=== PATIENT | male | born 1955 | race Caucasian/White ===

== ENCOUNTER 2017-11-17 12:19 | Inpatient (IN) | payer MEDICARE, OTHER ==
[~2017-11-17] VITALS: Ht 177.8 cm; Wt 77.8 kg
[2017-11-17] MEDS ORDERED: DILTIAZEM 5 MG/ML, 5ML IVPush STA (12:30)
[2017-11-17] MEDS ORDERED: SODIUM CHLORIDE FLUSH 10ML SYR IVF ONE (12:30)
[2017-11-17] MEDS ORDERED: DILTIAZEM 5 MG/ML, 5ML ONE (12:38)
[2017-11-17 12:46] LABS: BASOPHILS # (AUTO) 0.03 x10^3/uL (0-0.1); BASOPHILS % (AUTO) 0 % (0-1); EOSINOPHILS # (AUTO) 0.04 x10^3/uL (0-0.4); EOSINOPHILS % (AUTO) 0 % (1-7); LYMPHOCYTES # (AUTO) 1.91 x10^3/uL (1-3.4); LYMPHOCYTES % (AUTO) 13 % (22-44); MD NO; MEAN CORPUSCULAR HEMOGLOBIN 32.8 pg (27.5-34.5); MEAN CORPUSCULAR HGB CONC 34.2 g/dL (33.2-36.2); MEAN PLATELET VOLUME 6.6 fL (7.4-10.4); MONOCYTES # (AUTO) 0.71 x10^3/uL (0.2-0.8); MONOCYTES % (AUTO) 5 % (2-9); NEUTROPHILS # (AUTO) 11.85 x10^3/uL (1.8-6.8); NEUTROPHILS % (AUTO) 82 % (42-75); PLATELET COUNT 455 x10^3/uL (130-400); RED BLOOD COUNT 4.87 x10^6/uL (4.38-5.82); RED CELL DISTRIBUTION WIDTH 15.1 % (9.4-14.8)
[2017-11-17 12:54] LABS: INTERNATIONAL NORMALIZED RATIO 0.98 (0.93-1.1); PROTHROMBIN TIME 10.2 Seconds (9.6-11.5)
[2017-11-17 12:59] LABS: ALANINE AMINOTRANSFERASE 23 U/L (12-78); ALBUMIN 3.8 g/dL (3.4-5.0); ANION GAP 15 mmol/L (5-15); CALCIUM 8.4 mg/dL (8.5-10.1); CHLORIDE 99 mmol/L (98-107); CREATININE 1.06 mg/dL (0.7-1.3)
[2017-11-17] MEDS ORDERED: ETOMIDATE 20 MG/10 ML ONE (12:59)
[2017-11-17 13:03] LABS: ALKALINE PHOSPHATASE 128 U/L (45-117); BILIRUBIN,TOTAL 0.4 mg/dL (0.2-1.0); TOTAL PROTEIN 8.1 g/dL (6.4-8.2); TROPONIN I < 0.015 ng/mL (0.000-0.045)
[2017-11-17] MEDS ORDERED: FENTANYL PF 100 MCG/2ML ONE (13:10)
[2017-11-17] MEDS ORDERED: PROPOFOL 10 MG/ML, 20ML ONE ×2 (13:11→16:14)
[2017-11-17] MEDS ORDERED: FENTANYL PF 100 MCG/2ML IV ONE (13:30)
[2017-11-17] MEDS ORDERED: METOPROLOL TARTRATE 25 MG TABLET PO ONE (13:30)
[2017-11-17] MEDS ORDERED: PROPOFOL 10 MG/ML, 20ML IVPush ONE ×2 (13:30→16:30)
[2017-11-17] MEDS ORDERED: ETOMIDATE 20 MG/10 ML IVPush ONE ×2 (13:30)
[2017-11-17] MEDS ORDERED: ENOXAPARIN 80 MG/0.8 ML SQ ONE (14:30)
[2017-11-17] MEDS ORDERED: AMIODARONE 900 MG in DEXTROSE 5% 482 ML IV ONE (14:30)
[2017-11-17] MEDS ORDERED: FILTER 0.22 MICRON IV ONE (14:30)
[2017-11-17] MEDS ORDERED: AMIODARONE 150 MG in DEXTROSE 5% 100 ML IV ONE (14:30)
[2017-11-17] MEDS ORDERED: ONDANSETRON 2MG/ML, 2ML ONE (14:50)
[2017-11-17] MEDS ORDERED: ONDANSETRON 2MG/ML, 2ML IVPush PRN ×2 (15:00→15:30)
[2017-11-17] MEDS ORDERED: LORazepam 2 MG/ML, 1ML ONE (15:06)
[2017-11-17] MEDS ORDERED: DOCUSATE 100 MG CAPSULE PO PRN (15:30)
[2017-11-17] MEDS ORDERED: BISACODYL 10 MG SUPP PR PRN (15:30)
[2017-11-17] MEDS ORDERED: Enoxaparin 1 mg/kg protocol SQ SCH (15:30)
[2017-11-17] MEDS ORDERED: ENALAPRILAT 1.25 MG/ML, 2ML IVPush PRN (15:30)
[2017-11-17] MEDS ORDERED: ACETAMINOPHEN 325 MG TABLET PO PRN (15:30)
[2017-11-17] MEDS ORDERED: LORazepam 2 MG/ML, 1ML IVPush ONE (15:30)
[2017-11-17] MEDS ORDERED: POLYETHYLENE GLYCOL 17 GM PACKET PO PRN (15:30)
[2017-11-17] MEDS ORDERED: LORazepam 2 MG/ML, 1ML IVPush PRN (15:30)
[2017-11-17] MEDS ORDERED: MAGNESIUM SULFATE PMX 2GM/50ML 50 ML IV ONE (16:00)
[2017-11-17] MEDS ORDERED: AMIODARONE 900 MG in DEXTROSE 5% 482 ML IV PRN (16:00)
[2017-11-17] MEDS ORDERED: NS + 20MEQ KCL 1,000 ML IV SCH (16:00)
[2017-11-17] MEDS: BACLOFEN 10 MG TABLET PO SCH ×2 (16:00→20:42)
[2017-11-17 16:23] LABS: THYROID STIMULATING HORMONE 2.18 mIU/L (0.358-3.740)
[2017-11-17 17:00] LABS: AMPHETAMINE SCREEN, URINE Negative (Negative); BARBITURATE SCREEN, URINE Negative (Negative); BENZODIAZEPINE SCREEN, URINE Negative (Negative); CANNABINOID SCREEN, URINE Negative (Negative); COCAINE SCREEN, URINE Negative (Negative); METHADONE SCREEN, URINE Negative (Negative); OPIATE SCREEN, URINE Negative (Negative)
[2017-11-17] MEDS: ENOXAPARIN 80 MG/0.8 ML SQ SCH (18:00)
[2017-11-17 18:05] VITALS: BP 151/96
[2017-11-17] MEDS: CEFTRIAXONE PMX 1GM/50ML 50 ML IV SCH (20:37)
[2017-11-17] MEDS: SODIUM CHLORIDE FLUSH 10ML SYR IVF SCH (20:42)
[2017-11-17] MEDS: GUAIFENESIN ER 600 MG TABLET PO SCH (20:42)
[2017-11-17] MEDS: DOXYCYCLINE 50 MG/5 ML ORAL SUSP PO SCH (20:43)
[2017-11-17] MEDS: methylPREDNISolone SOD SUCC 125 MG/2 ML IVPush SCH (21:09)
[2017-11-17 23:24] VITALS: BP 166/100
[2017-11-17] MEDS: LORazepam 2 MG/ML, 1ML IVPush PRN (23:53)
[2017-11-18] MEDS ORDERED: IBUPROFEN 200 MG TABLET PO ONE
[2017-11-18 03:04] VITALS: BP 150/92
[2017-11-18] MEDS: methylPREDNISolone SOD SUCC 125 MG/2 ML IVPush SCH ×2 (03:08→10:18)
[2017-11-18] MEDS: ENOXAPARIN 80 MG/0.8 ML SQ SCH ×2 (05:17→18:19)
[2017-11-18 06:48] LABS: BASOPHILS # (AUTO) 0.03 x10^3/uL (0-0.1); BASOPHILS % (AUTO) 0 % (0-1); EOSINOPHILS % (AUTO) 0 % (1-7); LYMPHOCYTES # (AUTO) 0.33 x10^3/uL (1-3.4); LYMPHOCYTES % (AUTO) 5 % (22-44); MD NO; MEAN CORPUSCULAR HGB CONC 34.3 g/dL (33.2-36.2); MEAN PLATELET VOLUME 6.9 fL (7.4-10.4); MONOCYTES # (AUTO) 0.03 x10^3/uL (0.2-0.8); MONOCYTES % (AUTO) 0 % (2-9); NEUTROPHILS # (AUTO) 6.09 x10^3/uL (1.8-6.8); NEUTROPHILS % (AUTO) 94 % (42-75); PLATELET COUNT 320 x10^3/uL (130-400); RED BLOOD COUNT 4.31 x10^6/uL (4.38-5.82); RED CELL DISTRIBUTION WIDTH 14.9 % (9.4-14.8)
[2017-11-18 06:57] LABS: ALANINE AMINOTRANSFERASE 20 U/L (12-78); ALBUMIN 3.4 g/dL (3.4-5.0); ANION GAP 9 mmol/L (5-15); CALCIUM 8.2 mg/dL (8.5-10.1); CHLORIDE 100 mmol/L (98-107); CHOLESTEROL, TOTAL 224 mg/dL (140-239)
[2017-11-18 06:59] LABS: ALKALINE PHOSPHATASE 112 U/L (45-117); BILIRUBIN,TOTAL 0.9 mg/dL (0.2-1.0); CHOL/HDL RATIO 2.7; HDL CHOL % 37 % (26-37); HDL CHOLESTEROL (DIRECT) 83 mg/dL (40-60); LDL CHOLESTEROL,CALCULATED 125 mg/dL (54-169); LDL/HDL RATIO 1.5 (0.5-3.0); TOTAL PROTEIN 7.3 g/dL (6.4-8.2); TRIGLYCERIDES 80 mg/dL (50-200); VLDL CHOLESTEROL 16 mg/dL (0-25)
[2017-11-18] MEDS: LORazepam 2 MG/ML, 1ML IVPush PRN ×6 (08:03→23:40)
[2017-11-18 08:25] VITALS: BP 164/96
[2017-11-18] MEDS ORDERED: LORazepam 2 MG/ML, 1ML ONE (10:10)
[2017-11-18] MEDS: BACLOFEN 10 MG TABLET PO SCH ×3 (10:17→21:07)
[2017-11-18] MEDS: GUAIFENESIN ER 600 MG TABLET PO SCH ×2 (10:17→21:07)
[2017-11-18] MEDS: METOPROLOL TARTRATE 25 MG TABLET PO SCH ×2 (10:17→18:19)
[2017-11-18] MEDS: DOXYCYCLINE 50 MG/5 ML ORAL SUSP PO SCH ×2 (10:18→21:07)
[2017-11-18] MEDS: SODIUM CHLORIDE FLUSH 10ML SYR IVF SCH ×2 (10:18→21:07)
[2017-11-18 11:55] VITALS: BP 164/91
[2017-11-18] MEDS ORDERED: FILTER 0.22 MICRON IV PRN (13:30)
[2017-11-18 14:50] VITALS: BP 146/85
[2017-11-18] MEDS: CEFTRIAXONE PMX 1GM/50ML 50 ML IV SCH (15:50)
[2017-11-18 19:01] VITALS: BP 147/89
[2017-11-19 00:05] VITALS: BP 161/94
[2017-11-19] MEDS: METOPROLOL TARTRATE 25 MG TABLET PO SCH ×2 (02:32→09:00)
[2017-11-19] MEDS: LORazepam 2 MG/ML, 1ML IVPush PRN ×4 (02:32→13:22)
[2017-11-19] MEDS: ENOXAPARIN 80 MG/0.8 ML SQ SCH (05:34)
[2017-11-19 06:14] VITALS: BP 159/95
[2017-11-19 08:05] VITALS: BP 156/96
[2017-11-19] MEDS ORDERED: ASPIRIN 325 MG TABLET PO SCH (08:30)
[2017-11-19] MEDS ORDERED: NICOTINE 14MG/24 HR PATCH.TD24 TD ONE (08:30)
[2017-11-19] MEDS: DOXYCYCLINE 50 MG/5 ML ORAL SUSP PO SCH (08:58)
[2017-11-19] MEDS: BACLOFEN 10 MG TABLET PO SCH (08:59)
[2017-11-19] MEDS: GUAIFENESIN ER 600 MG TABLET PO SCH (08:59)
[2017-11-19] MEDS ORDERED: AMIODARONE 200 MG TABLET PO SCH (09:00)
[2017-11-19] MEDS: SODIUM CHLORIDE FLUSH 10ML SYR IVF SCH (09:01)
[2017-11-19] MEDS ORDERED: AMIODARONE 150 MG in DEXTROSE 5% 100 ML IV ONE (10:30)
[2017-11-19] MEDS ORDERED: AMIODARONE 900 MG in DEXTROSE 5% 482 ML IV PRN (10:30)
[2017-11-19 14:09] VITALS: BP 147/98
== END 2017-11-19 15:40 | disposition left against medical advice (07) | DRG 309 ==
LOC: ED 14:21 → EDIP 14:41 → 5SO 17:27
PROVIDERS: ADMIT Internal Medicine; ATTEND Internal Medicine
PROC: 5A2204Z Restoration of Cardiac Rhythm, Single (ICD-10-PCS; principal; 2017-11-17)
DX: I48.91 Unspecified atrial fibrillation (principal); E87.1 Hypo-osmolality and hyponatremia; F10.239 Alcohol dependence with withdrawal, unspecified; F17.210 Nicotine dependence, cigarettes, uncomplicated; J20.9 Acute bronchitis, unspecified; F41.9 Anxiety disorder, unspecified; I10 Essential (primary) hypertension; J45.909 Unspecified asthma, uncomplicated; Z79.01 Long term (current) use of anticoagulants; Z79.82 Long term (current) use of aspirin
CPT/HCPCS: 36415; 70450; 71045; 71275; 80053; 80061; 80307; 83735; 83880; 84443; 84484; 85025; 85379; 85610; 93005; 93306; 96365; 96366; 96372; 96375; 99152; 99153; J0696; J1650; J2405; J2704; J3010; J3480; J0282; J2060; J2930; J7060; J7512

== ENCOUNTER 2017-11-21 20:07 | Emergency (ER) | payer MEDICARE ==
[~2017-11-21] VITALS: Ht 180.3 cm; Wt 78.7 kg
[2017-11-21 20:11] VITALS: BP 168/100
[2017-11-21] MEDS ORDERED: THIAMINE 100MG TABLET PO ONE (20:30)
[2017-11-21] MEDS ORDERED: THIAMINE 100MG TABLET ONE (20:43)
[2017-11-21 20:44] LABS: BASOPHILS # (AUTO) 0.01 x10^3/uL (0-0.1); BASOPHILS % (AUTO) 0 % (0-1); EOSINOPHILS # (AUTO) 0.14 x10^3/uL (0-0.4); EOSINOPHILS % (AUTO) 1 % (1-7); LYMPHOCYTES # (AUTO) 1.37 x10^3/uL (1-3.4); LYMPHOCYTES % (AUTO) 12 % (22-44); MD NO; MEAN CORPUSCULAR HEMOGLOBIN 32.6 pg (27.5-34.5); MEAN CORPUSCULAR HGB CONC 33.3 g/dL (33.2-36.2); MEAN PLATELET VOLUME 7.5 fL (7.4-10.4); MONOCYTES # (AUTO) 0.63 x10^3/uL (0.2-0.8); MONOCYTES % (AUTO) 6 % (2-9); NEUTROPHILS # (AUTO) 9.13 x10^3/uL (1.8-6.8); NEUTROPHILS % (AUTO) 81 % (42-75); PLATELET COUNT 285 x10^3/uL (130-400); RED BLOOD COUNT 4.67 x10^6/uL (4.38-5.82); RED CELL DISTRIBUTION WIDTH 15.2 % (9.4-14.8)
[2017-11-21 20:55] LABS: CHLORIDE 104 mmol/L (98-107)
[2017-11-21 20:56] LABS: ALANINE AMINOTRANSFERASE 77 U/L (12-78); ALBUMIN 3.7 g/dL (3.4-5.0); ANION GAP 6 mmol/L (5-15); CREATININE 0.96 mg/dL (0.7-1.3)
[2017-11-21 21:00] LABS: ALKALINE PHOSPHATASE 113 U/L (45-117); BILIRUBIN,TOTAL 0.5 mg/dL (0.2-1.0); TOTAL PROTEIN 7.7 g/dL (6.4-8.2); TROPONIN I < 0.015 ng/mL (0.000-0.045)
== END 2017-11-21 21:32 | disposition home or self-care (01) ==
LOC: ED 20:36
DX: R42 Dizziness and giddiness (principal); R00.2 Palpitations; G89.29 Other chronic pain; G62.9 Polyneuropathy, unspecified; I48.91 Unspecified atrial fibrillation; J45.909 Unspecified asthma, uncomplicated
CPT/HCPCS: 36415; 71045; 80053; 84484; 85025; 93005; 99285